=== PATIENT | female | born 1965 | race Caucasian/White ===

== ENCOUNTER 2018-11-06 10:45 | Emergency (ER) | payer OTHER ==
[~2018-11-06] VITALS: Ht 167.6 cm; Wt 65.8 kg
[~2018-11-06 10:45] MED LIST: BUDEPRION SR150 MG; FIORICET 50-301 EACH; LAMICTAL25 MG; LOSARTAN POTASS50 MG; WELLBUTRIN XL150 M1
== END 2018-11-06 19:04 | disposition home or self-care (01) ==
LOC: ER 10:45
DX: G43.509 Persistent migraine aura without cerebral infarction, not intractable, without status migrainosus (principal)

== ENCOUNTER 2021-02-26 14:06 | Emergency (ER) | payer OTHER ==
[~2021-02-26] VITALS: Ht 167.6 cm; Wt 70.3 kg
[2021-02-26] MEDS ORDERED: CAPSAICIN42.5 GM TOP (16:39)
== END 2021-02-26 18:23 | disposition home or self-care (01) ==
LOC: ER 14:06
DX: L23.3 Allergic contact dermatitis due to drugs in contact with skin (principal); T38.0X5A Adverse effect of glucocorticoids and synthetic analogues, initial encounter; T41.3X5A Adverse effect of local anesthetics, initial encounter; Y92.89 Other specified places as the place of occurrence of the external cause

== ENCOUNTER 2021-03-12 14:23 | Emergency (ER) | payer OTHER ==
[~2021-03-12] VITALS: Ht 167.6 cm; Wt 70.3 kg
[~2021-03-12 14:23] MED LIST changes: +CAPSAICIN42.5 GM TOP
[2021-03-12] MEDS ORDERED: ACETAZOLAMIDE125 MG (14:39)
[2021-03-12] MEDS ORDERED: BENADRYL50 MG PO (19:09)
[2021-03-12] MEDS ORDERED: MEDROLPACK PO (19:09)
== END 2021-03-12 19:17 | disposition home or self-care (01) ==
LOC: ER 14:23
DX: L23.89 Allergic contact dermatitis due to other agents (principal); R21 Rash and other nonspecific skin eruption